=== PATIENT | female | born 1970 | race African-American/Black ===

== ENCOUNTER 2016-06-29 10:48 | Emergency (ER) | payer OTHER ==
[~2016-06-29] VITALS: Ht 167.6 cm; Wt 106.0 kg
[2016-06-29] MEDS ORDERED: ZIPRASIDONE MESYLATE 20MG/VIAL IM STA (11:12)
[2016-06-29] MEDS ORDERED: SODIUM CHLORIDE 0.9% 1,000 ML IV ONE (11:12)
[2016-06-29 11:55] LABS: BASOPHILS % 0.8 % (0.0-2.0); EOSINOPHILS % 0.5 % (0.0-5.0); HEMATOCRIT. 37.2 % (36.0-48.0); HEMOGLOBIN. 12.5 g/dL (12.0-16.0); LYMPHOCYTES % 30.7 % (20.0-50.0); MEAN CORPUSCULAR HGB CONC 33.5 g/dL (31.0-37.0); MEAN CORPUSCULAR VOLUME 92.3 fL (81.0-99.0); MEAN PLATELET VOLUME 9.1 fl (7.4-10.4); MONOCYTES % 6.5 % (2.0-8.0); NEUTROPHILS % 61.5 % (40.0-76.0); PLATELET 301 x1000/uL (130-400); RED BLOOD CELL COUNT 4.03 mill/uL (4.2-5.4); RED CELL DISTRIBUTION WIDTH 13.6 % (11.6-14.6); WHITE BLOOD COUNT 9.6 x1000/uL (4.5-11.0)
[2016-06-29 11:56] LABS: GLUCOSE URINE NEGATIVE (NEGATIVE); KETONES URINE 2+ (NEGATIVE); LEUKOCYTE ESTERASE URINE NEGATIVE (NEGATIVE); NITRITE URINE NEGATIVE (NEGATIVE); OCCULT BLOOD URINE NEGATIVE (NEGATIVE); PH URINE 6.5 (4.5-8.0); PROTEIN URINE NEGATIVE (NEGATIVE); SPECIFIC GRAVITY URINE 1.016 (1.005-1.030); UROBILINOGEN URINE 0.2 E.U./dL (0.2-1.0)
[2016-06-29 11:58] LABS: CLARITY URINE CLEAR (CLEAR); COLOR URINE YELLOW (YELLOW)
[2016-06-29 12:00] LABS: ALBUMIN 3.8 g/dL (3.4-5.0); CALCIUM 8.9 mg/dL (8.5-10.1); CHLORIDE 103 mEq/L (98-107); INDEX HEMOLYSI 3 (1-3); INDEX ICTERIC 1 (1-4); INDEX LIPEMIC 1 (1-3)
[2016-06-29 12:05] LABS: ALANINE AMINOTRANSFERASE 24 IU/L (13-61); ANION GAP 16; CARBON DIOXIDE 26 mEq/L (21-32); ETHANOL BLOOD < 10 mg/dL; UREA NITROGEN BLOOD 6 mg/dL (7-21); eGFR > 60 mL/min (>60)
[2016-06-29 12:07] LABS: *AMPHETAMINES SCREEN URINE NEGATIVE (NEGATIVE); *BARBITURATES SCREEN URINE NEGATIVE (NEGATIVE); *BENZODIAZEPINES SCREEN URINE NEGATIVE (NEGATIVE); *COCAINE SCREEN URINE NEGATIVE (NEGATIVE); ECSTASY MDMA SCREEN URINE NEGATIVE (NEGATIVE); METHADONE URINE SCREEN NEGATIVE (NEGATIVE); OPIATES URINE SCREEN NEGATIVE (NEGATIVE); PHENCYCLIDINE URINE SCREEN NEGATIVE (NEGATIVE)
[2016-06-29 12:08] LABS: CANNABINOID URINE SCREEN PRESUMTIVE POSITIVE (NEGATIVE)
[2016-06-29 12:28] LABS: HCG SCREEN NEGATIVE
[2016-06-29 14:19] VITALS: BP 144/87
== END 2016-06-29 18:07 | disposition home or self-care (01) ==
LOC: ER 10:50
DX: F23 Brief psychotic disorder (principal); T40.7X1A Poisoning by cannabis (derivatives), accidental (unintentional), initial encounter; Y93.89 Activity, other specified; Y99.9 Unspecified external cause status; Y92.89 Other specified places as the place of occurrence of the external cause
CPT/HCPCS: 36415; 70450; 80053; 80305; 81003; 84703; 85025; 93005; 96360; 96372; 99285; G0482; J3486; J7030; Z7610